=== PATIENT | female | born 1955 | race Caucasian/White ===

== ENCOUNTER 2021-02-06 23:44 | Emergency (ER) | payer MEDICARE, OTHER ==
[2021-02-06] MEDS ORDERED: Diltiazem 125 MG/25 ML ONE (23:58)
[2021-02-06] MEDS ORDERED: Aspirin Chewable 81 MG TAB ONE ×2 (23:59)
[2021-02-07 00:15] LABS: #Basophils 0.1 thou/uL (0.0-0.2); #Eosinphils 0.2 thou/uL (0.0-0.7); #Lymphocytes 4.3 thou/uL (1.20-3.40); #Monocytes 0.9 thou/uL (0.11-0.59); #Neutrophils 4.8 thou/uL (1.40-6.50); %Basophils 1.1 % (0.0-1.0); %Lymphocytes 42.1 % (21.0-51.0); %Monocytes 8.5 % (0.0-10.0); %Neutrophils 46.3 % (42.0-75.0); Hemoglobin 15.1 g/dL (12.0-16.0); Mean Corpuscular HGB CONC 32.5 g/dL (32.0-36.0); Mean Corpuscular Hemoglobin 30.9 pg (27.0-31.0); Mean Corpuscular Volume 95.1 fL (78.0-98.0); Mean Platelet Volume 8.5 fL (7.4-10.4); Platelet Count 318 thou/uL (130-400); RBC Distribution Width 12.9 % (11.5-14.5); Red Blood Cell (RBC) Count 4.88 mill/uL (4.20-5.40); White Blood Cell (WBC) Count 10.3 thou/uL (4.8-10.8)
[2021-02-07 00:36] LABS: ALT (SGPT) 20 U/L (8-55); AST (SGOT) 16 U/L (5-34); Albumin 3.6 g/dL (3.4-4.8); Alkaline Phosphatase 116 U/L (40-110); Anion Gap 17 mmol/L (10-20); BUN (Urea Nitrogen) 19 mg/dL (9.8-20.1); Bilirubin, Total 0.3 mg/dL (0.2-1.2); CK (CPK) 39 U/L (29-168); Calc. Creatinine Clearance 0 mL/min (70-130); Calcium 9.8 mg/dL (7.8-10.44); Carbon Dioxide 25 mmol/L (23-31); Chloride 107 mmol/L (98-107); Globulin 3.2 g/dL (2.4-3.5); Glucose 122 mg/dL (80-115); Magnesium 2.4 mg/dL (1.6-2.6); Potassium 4.3 mmol/L (3.5-5.1); Protein, Total 6.8 g/dL (5.8-8.1); Sodium 145 mmol/L (136-145)
[2021-02-07] MEDS ORDERED: Enoxaparin Sodium 100 MG/ML SYRINGE ONE (00:49)
[2021-02-07 02:09] LABS: SARS-CoV-2 NAA Rapid Test Not Detected (NotDetected)
== END 2021-02-07 02:19 | disposition short-term general hospital (02) ==
LOC: BURERS 23:44
DX: I48.91 Unspecified atrial fibrillation (principal); Z20.822 Contact with and (suspected) exposure to COVID-19; E03.9 Hypothyroidism, unspecified
CPT/HCPCS: 71045; 80053; 82550; 83735; 84484; 85025; 93005; U0002; 96372; 96374; J1650

== ENCOUNTER 2022-06-01 23:07 | Emergency (ER) | payer MEDICARE ==
[2022-06-01] MEDS ORDERED: traMADol HCl 50 MG TAB ONE (23:27)
[2022-06-01] MEDS ORDERED: cloNIDine 0.1 MG TAB ONE (23:28)
[2022-06-01 23:48] LABS: #Basophils 0.1 thou/uL (0.0-0.2); #Eosinphils 0.1 thou/uL (0.0-0.7); #Lymphocytes 2.3 thou/uL (1.20-3.40); #Monocytes 0.7 thou/uL (0.11-0.59); %Eosinophils 1.2 % (0.0-10.0); %Lymphocytes 25.3 % (21.0-51.0); %Monocytes 7.4 % (0.0-10.0); %Neutrophils 65.1 % (42.0-75.0); Hemoglobin 13.6 g/dL (12.0-16.0); Mean Corpuscular HGB CONC 33.9 g/dL (32.0-36.0); Mean Corpuscular Hemoglobin 30.8 pg (27.0-31.0); Mean Corpuscular Volume 90.7 fl (78.0-98.0); Mean Platelet Volume 9.9 fL (7.4-10.4); Platelet Count 259 10x3/uL (130-400); Red Blood Cell (RBC) Count 4.42 mill/uL (4.20-5.40); White Blood Cell (WBC) Count 9.3 10x3/uL (4.8-10.8)
[2022-06-01] MEDS ORDERED: HYDROmorphone 0.5 MG/0.5 ML SYRINGE ONE (23:59)
[2022-06-02 00:03] LABS: ALT (SGPT) 10 U/L (8-55); AST (SGOT) 11 U/L (5-34); Albumin 3.6 g/dL (3.4-4.8); Alkaline Phosphatase 69 U/L (40-110); Anion Gap 11 mmol/L (10-20); BUN (Urea Nitrogen) 22 mg/dL (9.8-20.1); Bilirubin, Total 0.3 mg/dL (0.2-1.2); CK (CPK) 54 U/L (29-168); Calc. Creatinine Clearance 0 mL/min (70-130); Calcium 8.6 mg/dL (7.8-10.44); Carbon Dioxide 26 mmol/L (23-31); Chloride 106 mmol/L (98-107); Estimated GFR 60; Globulin 3.1 g/dL (2.4-3.5); Glucose 97 mg/dL (80-115); Magnesium 2.1 mg/dL (1.6-2.6); Potassium 3.8 mmol/L (3.5-5.1); Protein, Total 6.7 g/dL (5.8-8.1); Sodium 139 mmol/L (136-145)
[2022-06-02] MEDS ORDERED: Pantoprazole 40 MG VIAL ONE (00:04)
[2022-06-02] MEDS ORDERED: Mag-Al Plus 1200 MG/1200 MG/120 MG/30 ML UDCUP ONE (00:04)
[2022-06-02 00:14] LABS: Bilirubin Negative (Negative); Blood, Urine Trace (Negative); Clarity Clear (Clear); Glucose, Urine (Dipstick) Negative (Negative); Ketone, Urine Negative (Negative); Leukocyte Negative (Negative); Nitrite Negative (Negative); Protein, Urine (Dipstick) Negative (Neg-Trace)
[2022-06-02 00:19] LABS: RBC/HPF 0-3 HPF (0-3); Specific Gravity, Urine 1.032 (1.002-1.036); Squamous Epithelial None Seen HPF (0-3); WBC/HPF None Seen HPF (0-3)
[2022-06-02 00:20] LABS: Bacteria/HPF None Seen HPF (None Seen); Mucous/LPF None Seen LPF (<2+); Pregnancy Test - Urine (BHCG) Negative (Negative); Pregu Control Background? CLEAR/WHITE (CLR/WHITE); Pregu Control Bar Appear? YES (CONTROL BAR); Specific Gravity 1.032 (1.002-1.036)
[2022-06-02] MEDS ORDERED: Promethazine HCl 25 MG/ML VIAL ONE (00:30)
[2022-06-02] MEDS ORDERED: hydrALAZINE 20 MG/ML VIAL ONE (01:00)
[2022-06-02 02:24] LABS: SARS-CoV-2 NAA Rapid Test Not Detected (NotDetected)
[2022-06-02 02:29] LABS: Benzodiazepine Screen Detected (NotDetected)
[2022-06-02 02:30] LABS: Amphetamine Not Detected (NotDetected); Barbiturates Screen Not Detected (NotDetected); Cocaine Metabolite Screen Not Detected (NotDetected); Medtox Control Line Valid? VALID (VALID); Methadone Not Detected (NotDetected); Methamphetamine Not Detected (NotDetected); Opiate Screen Not Detected (NotDetected); Oxycodone Screen Not Detected (NotDetected); Phencyclidine (PCP) Not Detected (NotDetected); THC/Cannabinoid Screen Not Detected (NotDetected); Tricyclic Screen Not Detected (NotDetected)
[2022-06-02] MEDS ORDERED: Iopamidol 370 76% 100 ML VIAL ONE (12:56)
== END 2022-06-02 02:11 | disposition short-term general hospital (02) ==
LOC: BURERS 23:07
DX: I71.019 Dissection of thoracic aorta, unspecified (principal); I10 Essential (primary) hypertension; E03.9 Hypothyroidism, unspecified; R09.02 Hypoxemia; Z20.822 Contact with and (suspected) exposure to COVID-19; Z79.899 Other long term (current) drug therapy
CPT/HCPCS: 71275; 80306; 81025; 82550; 83605; 83735; 83880; 84484; 85379; 93005; U0002; 80053; 81003; 81015; 84443; 85025; 96374; 96375; C9113; J0360; J1170; J2550; Q9967

== ENCOUNTER 2022-06-06 16:09 | Outpatient (CLI) | payer MEDICARE | END 2022-06-06 16:10 | disposition home or self-care (01) | LOC: BURRAD 16:09 | PROVIDERS: ATTEND Family Medicine | DX: R07.89 Other chest pain (principal) ==

== ENCOUNTER 2022-09-27 02:20 | Emergency (ER) | payer MEDICARE ==
[2022-09-27 02:49] LABS: #Basophils 0.1 thou/uL (0.0-0.2); #Eosinphils 0.2 thou/uL (0.0-0.7); #Lymphocytes 2.9 thou/uL (1.20-3.40); #Monocytes 0.8 thou/uL (0.11-0.59); #Neutrophils 5.9 thou/uL (1.40-6.50); %Basophils 0.8 % (0.0-1.0); %Eosinophils 1.9 % (0.0-10.0); %Lymphocytes 29.6 % (21.0-51.0); %Monocytes 8.1 % (0.0-10.0); %Neutrophils 59.6 % (42.0-75.0); Hemoglobin 14.8 g/dL (12.0-16.0); Mean Corpuscular HGB CONC 32.1 g/dL (32.0-36.0); Mean Corpuscular Hemoglobin 29.7 pg (27.0-31.0); Mean Corpuscular Volume 92.6 fl (78.0-98.0); Platelet Count 276 10x3/uL (130-400); RBC Distribution Width 12.5 % (11.5-14.5); Red Blood Cell (RBC) Count 4.98 mill/uL (4.20-5.40); White Blood Cell (WBC) Count 9.9 10x3/uL (4.8-10.8)
[2022-09-27] MEDS ORDERED: Ketamine 50 MG/ML (10ML VIAL) ONE (02:52)
[2022-09-27] MEDS ORDERED: Adenosine 6 MG/2 ML VIAL ONE ×2 (02:54→02:55)
[2022-09-27 03:01] LABS: ALT (SGPT) 11 U/L (8-55); AST (SGOT) 12 U/L (5-34); Albumin 3.9 g/dL (3.4-4.8); Alkaline Phosphatase 74 U/L (40-110); Anion Gap 13 mmol/L (10-20); BUN (Urea Nitrogen) 21 mg/dL (9.8-20.1); Bilirubin, Total 0.3 mg/dL (0.2-1.2); Calc. Creatinine Clearance 0 mL/min (70-130); Calcium 9.7 mg/dL (7.8-10.44); Carbon Dioxide 27 mmol/L (23-31); Chloride 106 mmol/L (98-107); Estimated GFR 72; Globulin 3.6 g/dL (2.4-3.5); Glucose 110 mg/dL (80-115); Potassium 3.8 mmol/L (3.5-5.1); Protein, Total 7.5 g/dL (5.8-8.1); Sodium 142 mmol/L (136-145)
[2022-09-27] MEDS ORDERED: Promethazine HCl 25 MG/ML VIAL ONE (03:05)
== END 2022-09-27 04:30 | disposition home or self-care (01) ==
LOC: BURERS 02:20
DX: I47.1 Supraventricular tachycardia (principal)
CPT/HCPCS: 71045; 80053; 84484; 85025; 93005; 96374; 96375; 96376; J0153; J2550

== ENCOUNTER 2024-01-02 02:37 | Emergency (ER) | payer MEDICARE ==
[2024-01-02] MEDS ORDERED: Lidocaine/Transparent Dressing 1 EACH KIT ONE (02:41)
[2024-01-02] MEDS ORDERED: Adenosine 6 mg (2 mL) VIAL ONE (02:52)
[2024-01-02] MEDS ORDERED: Ketamine 50 MG/ML (10ML VIAL) ONE (03:15)
[2024-01-02 03:30] LABS: #Basophils 0.1 thou/uL (0.0-0.2); #Eosinphils 0.1 thou/uL (0.0-0.7); #Lymphocytes 2.1 thou/uL (1.20-3.40); #Monocytes 0.7 thou/uL (0.11-0.59); %Basophils 1.1 % (0.0-1.0); %Eosinophils 1.4 % (0.0-10.0); %Lymphocytes 26.2 % (21.0-51.0); %Neutrophils 62.4 % (42.0-75.0); Hematocrit 42.3 % (36.0-47.0); Hemoglobin 14.1 g/dL (12.0-16.0); Mean Corpuscular HGB CONC 33.4 g/dL (32.0-36.0); Mean Corpuscular Hemoglobin 28.7 pg (27.0-31.0); Mean Corpuscular Volume 85.9 fl (78.0-98.0); Platelet Count 279 10x3/uL (130-400); RBC Distribution Width 12.2 % (11.5-14.5); Red Blood Cell (RBC) Count 4.92 mill/uL (4.20-5.40); White Blood Cell (WBC) Count 8.1 10x3/uL (4.8-10.8)
[2024-01-02 03:44] LABS: ALT (SGPT) 94 U/L (8-55); AST (SGOT) 88 U/L (5-34); Albumin 3.1 g/dL (3.4-4.8); Alkaline Phosphatase 98 U/L (40-110); Anion Gap 16 mmol/L (10-20); BUN (Urea Nitrogen) 21 mg/dL (9.8-20.1); Bilirubin, Total 0.5 mg/dL (0.2-1.2); Calc. Creatinine Clearance 0 mL/min (70-130); Calcium 9.5 mg/dL (7.8-10.44); Carbon Dioxide 20 mmol/L (23-31); Chloride 107 mmol/L (98-107); Estimated GFR 85; Globulin 3.9 g/dL (2.4-3.5); Glucose 117 mg/dL (80-115); Potassium 4.2 mmol/L (3.5-5.1); Sodium 139 mmol/L (136-145)
[2024-01-02 03:45] LABS: Troponin I 0.021 ng/mL (< 0.028)
[2024-01-02 12:35] LABS: Free T4 (Free Thyroxine) 1.17 ng/dL (0.70-1.48)
== END 2024-01-02 06:35 | disposition short-term general hospital (02) ==
LOC: BURERS 02:37
DX: I47.10 Supraventricular tachycardia, unspecified (principal); E05.90 Thyrotoxicosis, unspecified without thyrotoxic crisis or storm; E03.9 Hypothyroidism, unspecified; C50.912 Malignant neoplasm of unspecified site of left female breast; Z79.01 Long term (current) use of anticoagulants; Z79.899 Other long term (current) drug therapy
CPT/HCPCS: 80053; 83880; 84439; 84443; 84481; 84484; 85025; 93005; 96374; 99152; J0153